=== PATIENT | female | born 1990 | race African-American/Black ===

== ENCOUNTER 2017-03-10 22:14 | Emergency (ER) | payer MEDICAID ==
[~2017-03-10] VITALS: Ht 177.8 cm; Wt 85.0 kg
[2017-03-11] MEDS ORDERED: LIDOCAINE HCL 1% 20ML VIAL (Pyxis) INJ INFIL ONE (00:45)
[2017-03-11] MEDS ORDERED: AZITHROMYCIN 500 MG TABLET PO ONE (00:45)
[2017-03-11] MEDS ORDERED: CEFTRIAXONE SODIUM 250 MG/VIAL IM ONE (00:45)
[2017-03-11 02:44] VITALS: BP 121/69
[2017-03-15 04:11] LABS: CHLAMYDIA TRACHOMATIS NAA Negative (Negative); NEISSERIA GONORRHOEAE NAA Negative (Negative)
== END 2017-03-11 03:46 | disposition home or self-care (01) ==
LOC: ER 22:14
DX: N89.8 Other specified noninflammatory disorders of vagina (principal); F17.200 Nicotine dependence, unspecified, uncomplicated
CPT/HCPCS: 81025; 87210; 87491; 87591; 96372; 99284; J0696; J3490

== ENCOUNTER 2017-09-16 11:28 | Emergency (ER) | payer MEDICAID ==
[~2017-09-16] VITALS: Ht 177.8 cm; Wt 84.0 kg
[2017-09-16] MEDS ORDERED: SODIUM CHLORIDE 0.9% 1,000 ML IV ONE (14:51)
[2017-09-16] MEDS ORDERED: PYRIDOXINE HCL 50MG TABLET PO ONE (15:00)
[2017-09-16 15:03] LABS: CLARITY URINE CLOUDY (CLEAR); COLOR URINE DARK YELLOW (YELLOW); KETONES URINE 3+ (NEGATIVE); LEUKOCYTE ESTERASE URINE 1+ (NEGATIVE); NITRITE URINE NEGATIVE (NEGATIVE); OCCULT BLOOD URINE NEGATIVE (NEGATIVE); PH URINE 5.5 (4.5-8.0); PROTEIN URINE 2+ (NEGATIVE); SPECIFIC GRAVITY URINE 1.039 (1.005-1.030)
[2017-09-16 15:14] LABS: BASOPHILS % 0.2 % (0.0-2.0); EOSINOPHILS % 0.2 % (0.0-5.0); HEMATOCRIT. 41.9 % (36.0-48.0); HEMOGLOBIN. 13.3 g/dL (12.0-16.0); LYMPHOCYTES % 13.6 % (20.0-50.0); MEAN CORPUSCULAR VOLUME 78.6 fL (81.0-99.0); MEAN PLATELET VOLUME 9.3 fl (7.4-10.4); MONOCYTES % 4.3 % (2.0-8.0); NEUTROPHILS % 81.7 % (40.0-76.0); PLATELET 184 x1000/uL (130-400); RED BLOOD CELL COUNT 5.33 mill/uL (4.2-5.4); RED CELL DISTRIBUTION WIDTH 19.4 % (11.6-14.6)
[2017-09-16 15:26] LABS: CHLORIDE 100 mEq/L (98-107)
[2017-09-16 16:34] VITALS: BP 110/69
== END 2017-09-16 17:22 | disposition home or self-care (01) ==
LOC: ER 12:36
DX: Z32.01 Encounter for pregnancy test, result positive (principal); R11.2 Nausea with vomiting, unspecified
CPT/HCPCS: 36415; 80053; 81003; 81025; 83690; 85025; 96360; 99284; J7030; Z7610

== ENCOUNTER 2018-04-30 23:29 | Inpatient (IN) | payer MEDICAID ==
[~2018-04-30] VITALS: Ht 177.8 cm; Wt 90.7 kg
[2018-04-30] MEDS ORDERED: DEXT 5%/LR + PITOCIN 20UNITS/L 1,000 ML IV SCH (23:56)
[2018-05-01] VITALS (7 sets, daily range): BP systolic 93–112; BP diastolic 58–80
[2018-05-01] MEDS ORDERED: METHYLERGONOVINE MALEATE 0.2 MG/ML IM PRN
[2018-05-01] MEDS ORDERED: LIDOCAINE HCL 1% 20ML VIAL (Pyxis) INJ INFIL SCH
[2018-05-01] MEDS ORDERED: CARBOPROST TROMETHAMINE 250 MCG/ML AMPUL IM PRN
[2018-05-01] MEDS ORDERED: BUTORPHANOL TARTRATE 2 MG/ML VIAL IV PRN
[2018-05-01] MEDS ORDERED: MISOPROSTOL 100MCG TABLET VG SCH
[2018-05-01] MEDS: LACTATED RINGERS 1,000 ML IV SCH ×3 (00:14→01:29)
[2018-05-01 00:52] LABS: BASOPHILS % 0.2 % (0.0-2.0); EOSINOPHILS % 1.9 % (0.0-5.0); HEMATOCRIT. 34.6 % (36.0-48.0); HEMOGLOBIN. 11.5 g/dL (12.0-16.0); LYMPHOCYTES % 22.5 % (20.0-50.0); MEAN CORPUSCULAR HEMOGLOBIN 28.2 pg (28.0-32.0); MEAN CORPUSCULAR VOLUME 84.9 fL (81.0-99.0); MEAN PLATELET VOLUME 10.2 fl (7.4-10.4); MONOCYTES % 7.7 % (2.0-8.0); NEUTROPHILS % 67.7 % (40.0-76.0); PLATELET 163 x1000/uL (130-400); RED BLOOD CELL COUNT 4.07 mill/uL (4.2-5.4); RED CELL DISTRIBUTION WIDTH 14.6 % (11.6-14.6)
[2018-05-01 00:56] LABS: CHLORIDE 108 mEq/L (98-107)
[2018-05-01] MEDS ORDERED: PHENYLEPHRINE HCL 10 MG/ML 1ML (IV VIAL) IV ONE (00:58)
[2018-05-01 00:59] LABS: INR 0.9; PARTIAL THROMBOPLASTIN TIME 27.5 sec (23.4-31.0); PROTHROMBIN TIME 9.2 sec (9.1-11.1)
[2018-05-01] MEDS ORDERED: EPHEDRINE SULFATE 50MG/ML VIAL ONE (00:59)
[2018-05-01 01:19] LABS: CLARITY URINE CLEAR (CLEAR); COLOR URINE YELLOW (YELLOW); KETONES URINE TRACE (NEGATIVE); LEUKOCYTE ESTERASE URINE TRACE (NEGATIVE); NITRITE URINE NEGATIVE (NEGATIVE); OCCULT BLOOD URINE NEGATIVE (NEGATIVE); PH URINE 5.5 (4.5-8.0); PROTEIN URINE NEGATIVE (NEGATIVE); SPECIFIC GRAVITY URINE 1.026 (1.005-1.030)
[2018-05-01 01:30] LABS: *AMPHETAMINES SCREEN URINE NEGATIVE (NEGATIVE); *BARBITURATES SCREEN URINE NEGATIVE (NEGATIVE); *BENZODIAZEPINES SCREEN URINE NEGATIVE (NEGATIVE); *COCAINE SCREEN URINE NEGATIVE (NEGATIVE)
[2018-05-01 01:31] LABS: METHADONE URINE SCREEN NEGATIVE (NEGATIVE); OPIATES URINE SCREEN NEGATIVE (NEGATIVE); PHENCYCLIDINE URINE SCREEN NEGATIVE (NEGATIVE)
[2018-05-01 01:38] LABS: CANNABINOID URINE SCREEN PRESUMTIVE POSITIVE (NEGATIVE)
[2018-05-01] MEDS ORDERED: BUPIVACAINE HCL/PF 0.25% (2.5MG/ML) 10ML ONE (01:53)
[2018-05-01] MEDS ORDERED: BUPIVACAINE HCL/NS/PF EPIDURAL 100 ML EP ONE (01:53)
[2018-05-01] MEDS ORDERED: FENTANYL CITRATE/PF 50MCG/ML 2ML VIAL ONE (01:53)
[2018-05-01] MEDS ORDERED: CITRIC ACID/SODIUM CITRATE SOLN 30ML UDC PO NR (02:00)
[2018-05-01] MEDS ORDERED: MORPHINE SULFATE/PF 1MG/ML 10ML AMP ONE (02:03)
[2018-05-01] MEDS ORDERED: BUPIVACAINE HCL/DEXTROSE/PF 0.75% 2ML AMP INJ ONE (02:03)
[2018-05-01] MEDS ORDERED: BUPIVACAINE HCL/NS/PF EPIDURAL 100 ML EP SCH (02:30)
[2018-05-01] MEDS ORDERED: PENICILLIN G POTASSIUM 5 MMU in DEXT 5% WATER 100 ML IV NR (03:00)
[2018-05-01] MEDS ORDERED: LIDOCAINE HCL/PF 2% 20MG/ML 5 ML/VIAL ONE (03:09)
[2018-05-01] MEDS ORDERED: DEXT 5%/LR + PITOCIN 20UNITS/L 1,000 ML IV SCH (04:12)
[2018-05-01] MEDS ORDERED: ACETAMINOPHEN WITH CODEINE 300/30MG TABLET PO PRN (04:15)
[2018-05-01] MEDS ORDERED: BENZOCAINE/LANOLIN/ALOE VERA SPRAY TOP PRN (04:15)
[2018-05-01] MEDS ORDERED: HEMORRHOIDAL SUPP PR PRN (04:15)
[2018-05-01] MEDS ORDERED: IBUPROFEN 400MG TABLET PO PRN (04:15)
[2018-05-01] MEDS ORDERED: GLYCERIN/WITCH HAZEL LEAF MEDICATED PAD TOP PRN (04:15)
[2018-05-01] MEDS ORDERED: PENICILLIN G POTASSIUM 2.5 MMU in DEXTROSE 5% WATER 50 ML IV SCH (04:30)
[2018-05-01 06:49] LABS: HEPATITIS B SURFACE ANTIGEN NEGATIVE
[2018-05-01 10:27] LABS: BASOPHILS % 0.2 % (0.0-2.0); EOSINOPHILS % 0.8 % (0.0-5.0); HEMATOCRIT. 32.7 % (36.0-48.0); HEMOGLOBIN. 10.9 g/dL (12.0-16.0); LYMPHOCYTES % 16.8 % (20.0-50.0); MEAN CORPUSCULAR HEMOGLOBIN 28.3 pg (28.0-32.0); MEAN CORPUSCULAR VOLUME 84.9 fL (81.0-99.0); MEAN PLATELET VOLUME 10.1 fl (7.4-10.4); MONOCYTES % 7.9 % (2.0-8.0); NEUTROPHILS % 74.3 % (40.0-76.0); PLATELET 138 x1000/uL (130-400); RED BLOOD CELL COUNT 3.85 mill/uL (4.2-5.4); RED CELL DISTRIBUTION WIDTH 14.1 % (11.6-14.6)
[2018-05-01] MEDS: SIMETHICONE 80MG TABLET CHEW PO SCH ×4 (10:59→21:01)
[2018-05-01] MEDS: PRENATAL VIT/FE FUMARATE/FA TABLET PO SCH (10:59)
[2018-05-01] MEDS: MAGNESIUM/ALUMINUM HYDROXIDE/SIMETHICONE 30ML UDC PO SCH ×4 (10:59→21:00)
[2018-05-01] MEDS: ACETAMINOPHEN WITH CODEINE 300/30MG TABLET PO PRN (11:03)
[2018-05-01] MEDS: FERROUS SULFATE 325MG TABLET PO SCH ×2 (14:34→19:19)
[2018-05-01] MEDS: DOCUSATE SODIUM 100MG CAPSULE PO SCH (20:59)
[2018-05-02 04:00] VITALS: BP 106/71
[2018-05-02] MEDS: ACETAMINOPHEN WITH CODEINE 300/30MG TABLET PO PRN (05:01)
[2018-05-02 08:00] VITALS: BP 105/63
[2018-05-02] MEDS: PRENATAL VIT/FE FUMARATE/FA TABLET PO SCH (08:27)
[2018-05-02] MEDS: SIMETHICONE 80MG TABLET CHEW PO SCH ×2 (08:27→20:46)
[2018-05-02 16:44] VITALS: BP 123/79
[2018-05-02] MEDS: MAGNESIUM/ALUMINUM HYDROXIDE/SIMETHICONE 30ML UDC PO SCH (20:45)
[2018-05-02] MEDS: DOCUSATE SODIUM 100MG CAPSULE PO SCH (20:46)
[2018-05-02 22:00] VITALS: BP 118/82
[2018-05-03 06:00] VITALS: BP 109/71
[2018-05-03 08:30] VITALS: BP 103/63
[2018-05-06 08:15] LABS: CANNABINOID CONFIRMATION URINE Positive (.)
== END 2018-05-03 12:05 | disposition home or self-care (01) | DRG 560 ==
LOC: OBSVTOIN 23:29 → L&D 23:29 → 7EST PP/OB 05-01 05:05
PROVIDERS: ADMIT Obstetrics & Gynecology; ATTEND Obstetrics & Gynecology
PROC: 3E0R3BZ Introduction of Anesthetic Agent into Spinal Canal, Percutaneous Approach (ICD-10-PCS; 2018-05-01)
PROC: 00HU33Z Insertion of Infusion Device into Spinal Canal, Percutaneous Approach (ICD-10-PCS; 2018-05-01)
PROC: 10E0XZZ Delivery of Products of Conception, External Approach (ICD-10-PCS; principal; 2018-05-01 03:23)
DX: O76 Abnormality in fetal heart rate and rhythm complicating labor and delivery (principal); O60.23X0 Term delivery with preterm labor, third trimester, not applicable or unspecified; O99.42 Diseases of the circulatory system complicating childbirth; I35.0 Nonrheumatic aortic (valve) stenosis; O77.0 Labor and delivery complicated by meconium in amniotic fluid; Z3A.40 40 weeks gestation of pregnancy; Z37.0 Single live birth
CPT/HCPCS: 36415; 80305; 80349; 86592; 86703; 86762; 86850; 86900; 87340; G0378; J2274; J2370; J2540; J2590; J3010; J3490; J7060; J7120; A4315